=== PATIENT | female | born 1940 | race Caucasian/White ===

== ENCOUNTER 2017-09-24 16:08 | Inpatient (IN) | payer MEDICARE, OTHER ==
[~2017-09-24] VITALS: Ht 157.5 cm; Wt 48.0 kg
[~2017-09-24 16:08] MED LIST: AMLO5TAB4 PO; CHOL10002 PO; KEP500T PO; PRAV40TA3 PO
[2017-09-24] MEDS ORDERED: normal saline 1000ML IV soln IVB ONE ×2 (17:05→17:40)
[2017-09-24 18:16] LABS: COLOR,URINE Red (Yellow); UA COLLECTION TYPE FOLEY CATH
[2017-09-24 18:17] LABS: CLARITY,URINE TURBID (Clear)
[2017-09-24 18:23] LABS: BACTERIA,URINE 1+ /HPF (Neg); MUCUS STRANDS NONE SEEN /LPF (Neg); RBC,URINE TNTC /HPF (0-2); SQUAMOUS EPITHELIAL CELL,UR NONE SEEN /LPF (FEW); WBC,URINE 0-4 /HPF (0-4)
[2017-09-24 19:21] LABS: BASOPHILS # (AUTO) 0.1 X10'3 (0-0.2); BASOPHILS % (AUTO) 0.3 % (0-1); EOSINOPHILS # (AUTO) 0.5 X10'3 (0-0.9); HEMATOCRIT 39.1 % (35.0-45.0); HEMOGLOBIN 13.2 g/dl (12.0-16.0); LYMPHOCYTES % (AUTO) 8.7 % (21-51); MEAN CORPUSCULAR HEMOGLOBIN 30.2 PG (27.0-31.0); MEAN CORPUSCULAR HGB CONC 33.8 % (33.0-36.5); MEAN CORPUSCULAR VOLUME 89.3 FL (78-98); MEAN PLATELET VOLUME 7.4 FL (7.4-10.4); MONOCYTES # (AUTO) 0.8 X10'3 (0-0.9); MONOCYTES % (AUTO) 3.4 % (2-12); NEUTROPHILS # (AUTO) 19.9 X10'3 (1.8-7.7); NEUTROPHILS % (AUTO) 85.6 % (42-75); PLATELET COUNT 301 X10'3 (140-440); RED BLOOD COUNT 4.38 X10'6 (4.20-5.60); RED CELL DISTRIBUTION WIDTH 14.5 % (11.5-14.5); WHITE BLOOD COUNT 23.2 X10'3 (4.5-11.0)
[2017-09-24 19:31] LABS: ALANINE AMINOTRANSFERASE 19 U/L (12-78); ALBUMIN 3.3 G/DL (3.4-5.0); ALBUMIN/GLOBULIN RATIO 0.8 (1.1-1.5); ALKALINE PHOSPHATASE 133 IU/L (46-116); ANION GAP 13 (8-16); BILIRUBIN,TOTAL 0.5 MG/DL (0.1-1.0); BLOOD UREA NITROGEN 24 MG/DL (7-18); BUN/CREATININE RATIO 21.6 (6.6-38.0); CHLORIDE 105 MMOL/L (99-107); CREATININE 1.11 MG/DL (0.40-0.90); GLUCOSE 144 MG/DL (70-104); MAGNESIUM 1.9 MG/DL (1.5-2.4); SODIUM 141 MMOL/L (135-145); TOTAL CARBON DIOXIDE 23.5 MMOL/L (24-32); TOTAL PROTEIN 7.3 G/DL (6.4-8.2); eGFR 48 ML/MIN
[2017-09-24 19:34] LABS: ASPARTATE AMINO TRANSFERASE 20 U/L (10-37); CALCIUM 8.7 MG/DL (8.5-10.1); POTASSIUM 4.2 MMOL/L (3.5-5.1)
[2017-09-24] MEDS ORDERED: iohexol 300mg/ml 100ml inj. ONE (19:50)
[2017-09-24 20:42] LABS: TOTAL CELLS COUNTED 100
[2017-09-24 20:43] LABS: PLATELET ESTIMATE NORMAL
[2017-09-24] MEDS ORDERED: CLOP75TA15 PO (21:16)
[2017-09-24] MEDS ORDERED: CefTRIAXone/D5W-Rocephin 1gm 50 ML IV ONE (21:45)
[2017-09-24] MEDS: normal saline 1000ml 1,000 ML IV SCH (22:08)
[2017-09-24] MEDS ORDERED: potassium Cl 20 mEq SR tablet PO PRN ×2 (22:10)
[2017-09-24] MEDS ORDERED: magnesium hydroxide 30ml (MOM) UD suspension PO PRN (22:10)
[2017-09-24] MEDS ORDERED: magnesium 2GM in 50ml NS 50 ML IV PRN (22:10)
[2017-09-24] MEDS ORDERED: magnesium Cl slow-release 64mg tablet PO PRN (22:10)
[2017-09-24] MEDS ORDERED: potassium Cl 40MEQ/NS 500ml 500 ML IV PRN ×2 (22:10)
[2017-09-24] MEDS ORDERED: acetaminophen 325mg tablet PO PRN (22:10)
[2017-09-24] MEDS ORDERED: mag hydrox/Alum hydrox/simeth 30ml oral suspension PO PRN (22:10)
[2017-09-24] MEDS ORDERED: HYDROmorphone inj. 0.5 MG/0.5 ML DISP.SYRIN IV PRN ×2 (22:10)
[2017-09-24] MEDS ORDERED: ondansetron/PF 4mg/2ml inj IV PRN (22:10)
[2017-09-24] MEDS ORDERED: magnesium 4gm in 100ml NS 100 ML IV PRN (22:10)
[2017-09-24] MEDS ORDERED: CefTRIAXone 2gm/D5W 50ml 50 ML IV ONE (22:10)
[2017-09-24] MEDS ORDERED: ALBU8.5H8 IH (23:10)
[2017-09-25] VITALS (7 sets, daily range): BP systolic 108–137; BP diastolic 53–65
[2017-09-25] MEDS ORDERED: ZOLP5TAB8 PO (00:11)
[2017-09-25] MEDS: piperacillin/tazo 4.5gm/100ml 100 ML IV SCH ×2 (00:27→07:58)
[2017-09-25] MEDS ORDERED: LIDOcaine 1% 30ml preserv. free vial IJ STA (04:03)
[2017-09-25 06:42] LABS: BASOPHILS # (AUTO) 0.1 X10'3 (0-0.2); BASOPHILS % (AUTO) 1.1 % (0-1); EOSINOPHILS # (AUTO) 0.1 X10'3 (0-0.9); EOSINOPHILS % (AUTO) 0.8 % (0-6); HEMATOCRIT 25.5 % (35.0-45.0); HEMOGLOBIN 8.8 g/dl (12.0-16.0); LYMPHOCYTES # (AUTO) 1.4 X10'3 (1.1-4.8); LYMPHOCYTES % (AUTO) 11.1 % (21-51); MEAN CORPUSCULAR HEMOGLOBIN 30.8 PG (27.0-31.0); MEAN CORPUSCULAR HGB CONC 34.6 % (33.0-36.5); MEAN CORPUSCULAR VOLUME 89.2 FL (78-98); MEAN PLATELET VOLUME 7.2 FL (7.4-10.4); MONOCYTES # (AUTO) 0.7 X10'3 (0-0.9); MONOCYTES % (AUTO) 5.3 % (2-12); NEUTROPHILS % (AUTO) 81.7 % (42-75); PLATELET COUNT 306 X10'3 (140-440); RED BLOOD COUNT 2.86 X10'6 (4.20-5.60); RED CELL DISTRIBUTION WIDTH 14.7 % (11.5-14.5); WHITE BLOOD COUNT 12.2 X10'3 (4.5-11.0)
[2017-09-25 06:56] LABS: PARTIAL THROMBOPLASTIN TIME 22 SECONDS (22-32); PROTHROMBIN TIME 10.3 SECONDS (9.0-12.0)
[2017-09-25 07:04] LABS: ALANINE AMINOTRANSFERASE 15 U/L (12-78); ALBUMIN 2.9 G/DL (3.4-5.0); ALBUMIN/GLOBULIN RATIO 0.9 (1.1-1.5); ALKALINE PHOSPHATASE 102 IU/L (46-116); ANION GAP 10 (8-16); ASPARTATE AMINO TRANSFERASE 16 U/L (10-37); BILIRUBIN,TOTAL 0.5 MG/DL (0.1-1.0); BLOOD UREA NITROGEN 23 MG/DL (7-18); BUN/CREATININE RATIO 21.7 (6.6-38.0); CHLORIDE 107 MMOL/L (99-107); CREATININE 1.06 MG/DL (0.40-0.90); GLUCOSE 124 MG/DL (70-104); MAGNESIUM 1.7 MG/DL (1.5-2.4); SODIUM 141 MMOL/L (135-145); TOTAL CARBON DIOXIDE 23.9 MMOL/L (24-32); TOTAL PROTEIN 6.2 G/DL (6.4-8.2); eGFR 50 ML/MIN
[2017-09-25 07:05] LABS: OCCULT BLOOD STOOL NEGATIVE (Neg)
[2017-09-25] MEDS: amLODIPine 5mg tablet PO SCH ×2 (07:58→21:01)
[2017-09-25] MEDS: levetiracetam 250mg tablet PO SCH ×2 (07:58→21:00)
[2017-09-25] MEDS: vitamin D (cholecalciferol) 1,000 unit tablet PO SCH (07:58)
[2017-09-25] MEDS: lactobacillus rhamnosus 10,000 MMU CELLS/CAPSULE PO SCH ×2 (07:58→21:01)
[2017-09-25] MEDS: normal saline 1000ml 1,000 ML IV SCH (07:59)
[2017-09-25] MEDS: K and/or MAG REPLACEMENT MC SCH (08:00)
[2017-09-25 10:19] LABS: BASOPHILS # (AUTO) 0.1 X10'3 (0-0.2); EOSINOPHILS # (AUTO) 0.2 X10'3 (0-0.9); EOSINOPHILS % (AUTO) 1.6 % (0-6); HEMATOCRIT 23.7 % (35.0-45.0); HEMOGLOBIN 8.1 g/dl (12.0-16.0); LYMPHOCYTES # (AUTO) 2.1 X10'3 (1.1-4.8); LYMPHOCYTES % (AUTO) 16.7 % (21-51); MEAN CORPUSCULAR HEMOGLOBIN 30.4 PG (27.0-31.0); MEAN CORPUSCULAR VOLUME 89.4 FL (78-98); MEAN PLATELET VOLUME 6.9 FL (7.4-10.4); MONOCYTES # (AUTO) 0.7 X10'3 (0-0.9); MONOCYTES % (AUTO) 5.9 % (2-12); NEUTROPHILS # (AUTO) 9.5 X10'3 (1.8-7.7); NEUTROPHILS % (AUTO) 74.8 % (42-75); PLATELET COUNT 283 X10'3 (140-440); RED BLOOD COUNT 2.65 X10'6 (4.20-5.60); RED CELL DISTRIBUTION WIDTH 14.9 % (11.5-14.5); WHITE BLOOD COUNT 12.6 X10'3 (4.5-11.0)
[2017-09-25] MEDS ORDERED: diphenhydrAMINE 25mg capsule PO ONE (12:35)
[2017-09-25] MEDS ORDERED: acetaminophen 325mg tablet PO ONE (12:35)
[2017-09-25] MEDS: CefTRIAXone/D5W-Rocephin 1gm 50 ML IV SCH (13:35)
[2017-09-25] MEDS ORDERED: furosemide 40mg/4ml inj IV ONE (14:35)
[2017-09-25 17:33] LABS: BASOPHILS # (AUTO) 0.1 X10'3 (0-0.2); BASOPHILS % (AUTO) 1.1 % (0-1); EOSINOPHILS # (AUTO) 0.2 X10'3 (0-0.9); EOSINOPHILS % (AUTO) 1.8 % (0-6); HEMATOCRIT 27.6 % (35.0-45.0); HEMOGLOBIN 9.5 g/dl (12.0-16.0); LYMPHOCYTES # (AUTO) 2.1 X10'3 (1.1-4.8); LYMPHOCYTES % (AUTO) 20.7 % (21-51); MEAN CORPUSCULAR HEMOGLOBIN 30.9 PG (27.0-31.0); MEAN CORPUSCULAR HGB CONC 34.5 % (33.0-36.5); MEAN CORPUSCULAR VOLUME 89.5 FL (78-98); MEAN PLATELET VOLUME 7.1 FL (7.4-10.4); MONOCYTES # (AUTO) 0.6 X10'3 (0-0.9); MONOCYTES % (AUTO) 5.9 % (2-12); NEUTROPHILS # (AUTO) 7.2 X10'3 (1.8-7.7); NEUTROPHILS % (AUTO) 70.5 % (42-75); PLATELET COUNT 239 X10'3 (140-440); RED BLOOD COUNT 3.08 X10'6 (4.20-5.60); RED CELL DISTRIBUTION WIDTH 14.6 % (11.5-14.5); WHITE BLOOD COUNT 10.2 X10'3 (4.5-11.0)
[2017-09-25] MEDS ORDERED: ringers solution, lacted 1,000 ML IV ONE (19:09)
[2017-09-25] MEDS: pravastatin 40mg tablet PO SCH (21:00)
[2017-09-25] MEDS: HYDROcodone/acetaminophen 5mg/325mg tablet PO PRN (21:06)
[2017-09-26] VITALS (24 sets, daily range): BP systolic 89–140; BP diastolic 41–91
[2017-09-26 01:49] LABS: BASOPHILS # (AUTO) 0.1 X10'3 (0-0.2); BASOPHILS % (AUTO) 0.8 % (0-1); EOSINOPHILS # (AUTO) 0.3 X10'3 (0-0.9); EOSINOPHILS % (AUTO) 3.5 % (0-6); HEMATOCRIT 25.1 % (35.0-45.0); HEMOGLOBIN 8.5 g/dl (12.0-16.0); LYMPHOCYTES # (AUTO) 1.8 X10'3 (1.1-4.8); MEAN CORPUSCULAR HEMOGLOBIN 30.5 PG (27.0-31.0); MEAN CORPUSCULAR VOLUME 89.7 FL (78-98); MEAN PLATELET VOLUME 7.4 FL (7.4-10.4); MONOCYTES # (AUTO) 0.6 X10'3 (0-0.9); MONOCYTES % (AUTO) 7.4 % (2-12); NEUTROPHILS # (AUTO) 5.8 X10'3 (1.8-7.7); NEUTROPHILS % (AUTO) 67.3 % (42-75); PLATELET COUNT 218 X10'3 (140-440); RED CELL DISTRIBUTION WIDTH 14.2 % (11.5-14.5); WHITE BLOOD COUNT 8.6 X10'3 (4.5-11.0)
[2017-09-26 06:55] LABS: BASOPHILS # (AUTO) 0.1 X10'3 (0-0.2); BASOPHILS % (AUTO) 1.3 % (0-1); EOSINOPHILS # (AUTO) 0.3 X10'3 (0-0.9); EOSINOPHILS % (AUTO) 3.7 % (0-6); HEMOGLOBIN 8.9 g/dl (12.0-16.0); LYMPHOCYTES # (AUTO) 1.6 X10'3 (1.1-4.8); LYMPHOCYTES % (AUTO) 17.9 % (21-51); MEAN CORPUSCULAR HEMOGLOBIN 30.6 PG (27.0-31.0); MEAN CORPUSCULAR HGB CONC 34.3 % (33.0-36.5); MEAN PLATELET VOLUME 7.3 FL (7.4-10.4); MONOCYTES # (AUTO) 0.6 X10'3 (0-0.9); MONOCYTES % (AUTO) 6.6 % (2-12); NEUTROPHILS # (AUTO) 6.1 X10'3 (1.8-7.7); NEUTROPHILS % (AUTO) 70.5 % (42-75); PLATELET COUNT 218 X10'3 (140-440); RED BLOOD COUNT 2.92 X10'6 (4.20-5.60); RED CELL DISTRIBUTION WIDTH 14.5 % (11.5-14.5); WHITE BLOOD COUNT 8.7 X10'3 (4.5-11.0)
[2017-09-26 07:06] LABS: PARTIAL THROMBOPLASTIN TIME 24 SECONDS (22-32); PROTHROMBIN TIME 10.5 SECONDS (9.0-12.0)
[2017-09-26 07:23] LABS: ALANINE AMINOTRANSFERASE 14 U/L (12-78); ALBUMIN 2.6 G/DL (3.4-5.0); ALBUMIN/GLOBULIN RATIO 0.9 (1.1-1.5); ALKALINE PHOSPHATASE 88 IU/L (46-116); ANION GAP 8 (8-16); ASPARTATE AMINO TRANSFERASE 10 U/L (10-37); BILIRUBIN,TOTAL 0.4 MG/DL (0.1-1.0); BLOOD UREA NITROGEN 14 MG/DL (7-18); BUN/CREATININE RATIO 15.2 (6.6-38.0); CALCIUM 7.7 MG/DL (8.5-10.1); CHLORIDE 106 MMOL/L (99-107); CREATININE 0.92 MG/DL (0.40-0.90); GLUCOSE 85 MG/DL (70-104); MAGNESIUM 1.5 MG/DL (1.5-2.4); POTASSIUM 3.2 MMOL/L (3.5-5.1); SODIUM 141 MMOL/L (135-145); TOTAL CARBON DIOXIDE 26.8 MMOL/L (24-32); TOTAL PROTEIN 5.6 G/DL (6.4-8.2); eGFR 59 ML/MIN
[2017-09-26] MEDS: vitamin D (cholecalciferol) 1,000 unit tablet PO SCH (07:49)
[2017-09-26] MEDS: lactobacillus rhamnosus 10,000 MMU CELLS/CAPSULE PO SCH ×2 (07:49→20:33)
[2017-09-26] MEDS: K and/or MAG REPLACEMENT MC SCH (08:00)
[2017-09-26] MEDS: CefTRIAXone/D5W-Rocephin 1gm 50 ML IV SCH (08:20)
[2017-09-26] MEDS: amLODIPine 5mg tablet PO SCH (08:37)
[2017-09-26] MEDS: levetiracetam 250mg tablet PO SCH ×2 (08:37→20:32)
[2017-09-26] MEDS ORDERED: dexamethasone sod phosphate 4mg/ml inj. ONE (08:45)
[2017-09-26] MEDS ORDERED: sevoflurane 250ml liquid IH ONE (08:45)
[2017-09-26] MEDS ORDERED: fentaNYL/PF 50MCG/1 ML 2ML syringe ONE (08:49)
[2017-09-26] MEDS ORDERED: midazolam 2 mg/2 ml injection ONE (08:50)
[2017-09-26] MEDS ORDERED: etomidate 2mg/ml inj. ONE (08:50)
[2017-09-26] MEDS ORDERED: ondansetron/PF 4mg/2ml inj ONE (08:50)
[2017-09-26] MEDS ORDERED: iohexol 300 MG/1 ML 50ml polymer ONE (08:50)
[2017-09-26] MEDS ORDERED: ringers solution, lacted 1,000 ML IV SCH (09:26)
[2017-09-26] MEDS ORDERED: morphine 4 MG/ML inj SYRINge IV PRN ×2 (09:30)
[2017-09-26] MEDS ORDERED: fentaNYL/PF 50MCG/1 ML 2ML syringe IV PRN ×2 (09:30)
[2017-09-26] MEDS ORDERED: ondansetron/PF 4mg/2ml inj IV PRN (09:30)
[2017-09-26] MEDS ORDERED: hydrALAZINE 20mg/ml inj. IV PRN (09:30)
[2017-09-26] MEDS ORDERED: enalaprilat dihydrate 2.5mg/2ml vial IV PRN (09:30)
[2017-09-26] MEDS ORDERED: normal saline 1000ml 1,000 ML IV SCH (16:15)
[2017-09-26] MEDS: levoFLOXACIN-Levaquin 500mg/D5 100 ML IV SCH (17:26)
[2017-09-26] MEDS: HYDROcodone/acetaminophen 5mg/325mg tablet PO PRN ×2 (19:22→23:29)
[2017-09-26] MEDS: Potassium Cl inj 20 MEQ in normal saline 1000ml 990 ML IV SCH (20:32)
[2017-09-26] MEDS: pravastatin 40mg tablet PO SCH (20:32)
[2017-09-27] VITALS: BP 99/61
[2017-09-27 04:00] VITALS: BP 126/64
[2017-09-27] MEDS: HYDROcodone/acetaminophen 5mg/325mg tablet PO PRN ×3 (05:37→20:59)
[2017-09-27 06:17] LABS: BASOPHILS % (AUTO) 0.2 % (0-1); EOSINOPHILS # (AUTO) 0.1 X10'3 (0-0.9); EOSINOPHILS % (AUTO) 1.4 % (0-6); HEMATOCRIT 23.8 % (35.0-45.0); LYMPHOCYTES % (AUTO) 11.2 % (21-51); MEAN CORPUSCULAR HEMOGLOBIN 30.7 PG (27.0-31.0); MEAN CORPUSCULAR HGB CONC 33.7 % (33.0-36.5); MEAN CORPUSCULAR VOLUME 91.1 FL (78-98); MEAN PLATELET VOLUME 7.5 FL (7.4-10.4); MONOCYTES # (AUTO) 0.4 X10'3 (0-0.9); MONOCYTES % (AUTO) 3.8 % (2-12); NEUTROPHILS # (AUTO) 7.8 X10'3 (1.8-7.7); NEUTROPHILS % (AUTO) 83.4 % (42-75); PLATELET COUNT 200 X10'3 (140-440); RED BLOOD COUNT 2.61 X10'6 (4.20-5.60); RED CELL DISTRIBUTION WIDTH 14.3 % (11.5-14.5); WHITE BLOOD COUNT 9.3 X10'3 (4.5-11.0)
[2017-09-27 06:35] LABS: ALANINE AMINOTRANSFERASE 15 U/L (12-78); ALBUMIN 2.8 G/DL (3.4-5.0); ALBUMIN/GLOBULIN RATIO 0.9 (1.1-1.5); ALKALINE PHOSPHATASE 76 IU/L (46-116); ANION GAP 7 (8-16); ASPARTATE AMINO TRANSFERASE 14 U/L (10-37); BILIRUBIN,TOTAL 0.3 MG/DL (0.1-1.0); BLOOD UREA NITROGEN 13 MG/DL (7-18); BUN/CREATININE RATIO 15.7 (6.6-38.0); CALCIUM 8.1 MG/DL (8.5-10.1); CHLORIDE 106 MMOL/L (99-107); CREATININE 0.83 MG/DL (0.40-0.90); GLUCOSE 99 MG/DL (70-104); MAGNESIUM 1.6 MG/DL (1.5-2.4); POTASSIUM 4.6 MMOL/L (3.5-5.1); SODIUM 139 MMOL/L (135-145); TOTAL CARBON DIOXIDE 26.4 MMOL/L (24-32); TOTAL PROTEIN 5.8 G/DL (6.4-8.2); eGFR 67 ML/MIN
[2017-09-27 07:38] VITALS: BP 104/53
[2017-09-27] MEDS: K and/or MAG REPLACEMENT MC SCH (08:00)
[2017-09-27] MEDS: levetiracetam 250mg tablet PO SCH ×2 (08:08→20:58)
[2017-09-27] MEDS: lactobacillus rhamnosus 10,000 MMU CELLS/CAPSULE PO SCH ×2 (08:08→20:57)
[2017-09-27] MEDS: vitamin D (cholecalciferol) 1,000 unit tablet PO SCH (08:08)
[2017-09-27] MEDS: levoFLOXACIN-Levaquin 500mg/D5 100 ML IV SCH (08:08)
[2017-09-27] MEDS: Potassium Cl inj 20 MEQ in normal saline 1000ml 990 ML IV SCH (11:07)
[2017-09-27 11:30] VITALS: BP 125/66
[2017-09-27] MEDS ORDERED: tamsulosin 0.4mg capsule PO ONE (12:10)
[2017-09-27 20:00] VITALS: BP 125/37
[2017-09-27] MEDS: pravastatin 40mg tablet PO SCH (20:59)
[2017-09-27] MEDS ORDERED: zolpidem 5mg tablet PO PRN (22:55)
[2017-09-28] VITALS: BP 146/56
[2017-09-28 04:41] LABS: BASOPHILS # (AUTO) 0.1 X10'3 (0-0.2); BASOPHILS % (AUTO) 1.2 % (0-1); EOSINOPHILS # (AUTO) 0.2 X10'3 (0-0.9); EOSINOPHILS % (AUTO) 1.5 % (0-6); HEMATOCRIT 22.7 % (35.0-45.0); HEMOGLOBIN 7.9 g/dl (12.0-16.0); LYMPHOCYTES # (AUTO) 2.6 X10'3 (1.1-4.8); LYMPHOCYTES % (AUTO) 25.6 % (21-51); MEAN CORPUSCULAR HGB CONC 34.9 % (33.0-36.5); MEAN CORPUSCULAR VOLUME 88.9 FL (78-98); MEAN PLATELET VOLUME 7.5 FL (7.4-10.4); MONOCYTES # (AUTO) 0.6 X10'3 (0-0.9); MONOCYTES % (AUTO) 6.3 % (2-12); NEUTROPHILS # (AUTO) 6.6 X10'3 (1.8-7.7); NEUTROPHILS % (AUTO) 65.4 % (42-75); PLATELET COUNT 229 X10'3 (140-440); RED BLOOD COUNT 2.55 X10'6 (4.20-5.60); RED CELL DISTRIBUTION WIDTH 14.9 % (11.5-14.5)
[2017-09-28 05:13] LABS: ALANINE AMINOTRANSFERASE 15 U/L (12-78); ALBUMIN 2.7 G/DL (3.4-5.0); ALBUMIN/GLOBULIN RATIO 0.9 (1.1-1.5); ALKALINE PHOSPHATASE 72 IU/L (46-116); ANION GAP 7 (8-16); ASPARTATE AMINO TRANSFERASE 15 U/L (10-37); BILIRUBIN,TOTAL 0.3 MG/DL (0.1-1.0); BLOOD UREA NITROGEN 12 MG/DL (7-18); BUN/CREATININE RATIO 11.7 (6.6-38.0); CALCIUM 7.9 MG/DL (8.5-10.1); CHLORIDE 104 MMOL/L (99-107); CREATININE 1.03 MG/DL (0.40-0.90); GLUCOSE 82 MG/DL (70-104); MAGNESIUM 1.5 MG/DL (1.5-2.4); POTASSIUM 3.9 MMOL/L (3.5-5.1); SODIUM 138 MMOL/L (135-145); TOTAL CARBON DIOXIDE 27.3 MMOL/L (24-32); TOTAL PROTEIN 5.6 G/DL (6.4-8.2); eGFR 52 ML/MIN
[2017-09-28] MEDS: levoFLOXACIN-Levaquin 500mg/D5 100 ML IV SCH (08:00)
[2017-09-28] MEDS: levetiracetam 250mg tablet PO SCH (08:00)
[2017-09-28] MEDS: vitamin D (cholecalciferol) 1,000 unit tablet PO SCH (08:00)
[2017-09-28] MEDS: lactobacillus rhamnosus 10,000 MMU CELLS/CAPSULE PO SCH (08:00)
[2017-09-28] MEDS: K and/or MAG REPLACEMENT MC SCH (08:00)
[2017-09-28] MEDS ORDERED: tamsulosin 0.4mg capsule PO SCH (08:00)
[2017-09-28 11:00] VITALS: BP 123/60
[2017-09-28] MEDS: HYDROcodone/acetaminophen 5mg/325mg tablet PO PRN (12:12)
[2017-09-29] MEDS ORDERED: levoFLOXACIN 500mg tablet PO SCH (11:00)
== END 2017-09-28 16:46 | DRG 662 ==
LOC: ER 16:09 → UNDOADMIN 22:08 → ED HOLD 22:08 → SUR 3N 09-25 11:52
PROVIDERS: ADMIT Internal Medicine; ATTEND Internal Medicine
PROC: 30233N1 Transfusion of Nonautologous Red Blood Cells into Peripheral Vein, Percutaneous Approach (ICD-10-PCS; principal; 2017-09-25)
PROC: 0TCB8ZZ Extirpation of Matter from Bladder, Via Natural or Artificial Opening Endoscopic (ICD-10-PCS; 2017-09-26)
PROC: 0W3R8ZZ Control Bleeding in Genitourinary Tract, Via Natural or Artificial Opening Endoscopic (ICD-10-PCS; 2017-09-26)
DX: S37.29XA Other injury of bladder, initial encounter (principal); A41.9 Sepsis, unspecified organism; N17.9 Acute kidney failure, unspecified; I69.354 Hemiplegia and hemiparesis following cerebral infarction affecting left non-dominant side; D62 Acute posthemorrhagic anemia; N30.91 Cystitis, unspecified with hematuria; E86.0 Dehydration; G40.909 Epilepsy, unspecified, not intractable, without status epilepticus; N39.498 Other specified urinary incontinence; R33.9 Retention of urine, unspecified; E78.5 Hyperlipidemia, unspecified; E87.6 Hypokalemia; F01.50 Vascular dementia, unspecified severity, without behavioral disturbance, psychotic disturbance, mood disturbance, and anxiety; I10 Essential (primary) hypertension; E55.9 Vitamin D deficiency, unspecified; Z99.3 Dependence on wheelchair; Z90.49 Acquired absence of other specified parts of digestive tract; Z79.02 Long term (current) use of antithrombotics/antiplatelets; Z79.82 Long term (current) use of aspirin; Z79.899 Other long term (current) drug therapy; Z87.891 Personal history of nicotine dependence; Z92.21 Personal history of antineoplastic chemotherapy; Z85.038 Personal history of other malignant neoplasm of large intestine; X58.XXXA Exposure to other specified factors, initial encounter; Y92.89 Other specified places as the place of occurrence of the external cause
CPT/HCPCS: 36415; 71045; 74176; 80053; 81001; 82272; 83605; 83735; 83880; 84145; 84484; 85025; 85610; 85730; 86885; 86900; 86901; 86920; 87040; 87070; 93005; 94760; 96361; 96365; 97110; 97530; 99285; A4402; A6258; A6402; C1751; J0696; J1100; J1940; J1956; J2250; J2405; J2543; J3010; J3480; J3490; J7030; J7120; P9016; Q0163; Q9967

== ENCOUNTER 2018-02-03 16:13 | Inpatient (IN) | payer MEDICARE, OTHER ==
[~2018-02-03] VITALS: Ht 160 cm; Wt 53.0 kg
[~2018-02-03 16:13] MED LIST changes: +ALBU8.5H8 IH; +CLOP75TA15 PO; +ZOLP5TAB8 PO
[2018-02-03 16:49] LABS: BASOPHILS # (AUTO) 0.1 X10'3 (0-0.2); BASOPHILS % (AUTO) 0.9 % (0-1); EOSINOPHILS # (AUTO) 0.4 X10'3 (0-0.9); EOSINOPHILS % (AUTO) 3.3 % (0-6); HEMATOCRIT 37.8 % (35.0-45.0); HEMOGLOBIN 12.6 g/dl (12.0-16.0); LYMPHOCYTES # (AUTO) 2.1 X10'3 (1.1-4.8); LYMPHOCYTES % (AUTO) 18.6 % (21-51); MEAN CORPUSCULAR HEMOGLOBIN 29.4 PG (27.0-31.0); MEAN CORPUSCULAR HGB CONC 33.3 % (33.0-36.5); MEAN CORPUSCULAR VOLUME 88.2 FL (78-98); MEAN PLATELET VOLUME 7.8 FL (7.4-10.4); MONOCYTES # (AUTO) 0.6 X10'3 (0-0.9); MONOCYTES % (AUTO) 5.4 % (2-12); NEUTROPHILS # (AUTO) 8.2 X10'3 (1.8-7.7); NEUTROPHILS % (AUTO) 71.8 % (42-75); PLATELET COUNT 305 X10'3 (140-440); RED BLOOD COUNT 4.28 X10'6 (4.20-5.60); RED CELL DISTRIBUTION WIDTH 18.4 % (11.5-14.5); WHITE BLOOD COUNT 11.4 X10'3 (4.5-11.0)
[2018-02-03 16:58] LABS: INR 0.9 INR; PROTHROMBIN TIME 9.7 SECONDS (9.0-12.0)
[2018-02-03 17:04] LABS: ALANINE AMINOTRANSFERASE 26 U/L (12-78); ALBUMIN 3.7 G/DL (3.4-5.0); ALBUMIN/GLOBULIN RATIO 0.9 (1.1-1.5); ALKALINE PHOSPHATASE 129 IU/L (46-116); ANION GAP 7 (8-16); ASPARTATE AMINO TRANSFERASE 20 U/L (10-37); BILIRUBIN,TOTAL 0.3 MG/DL (0.1-1.0); BLOOD UREA NITROGEN 24 MG/DL (7-18); BUN/CREATININE RATIO 23.8 (6.6-38.0); CALCIUM 8.9 MG/DL (8.5-10.1); CHLORIDE 106 MMOL/L (99-107); CREATININE 1.01 MG/DL (0.40-0.90); GLUCOSE 97 MG/DL (70-104); POTASSIUM 3.9 MMOL/L (3.5-5.1); SODIUM 142 MMOL/L (135-145); TOTAL CARBON DIOXIDE 29.1 MMOL/L (24-32); TOTAL PROTEIN 7.6 G/DL (6.4-8.2); eGFR 53 ML/MIN
[2018-02-03 18:06] LABS: CLARITY,URINE CLOUDY (Clear); COLOR,URINE YELLOW (Yellow); GLUCOSE, URINE NEGATIVE (Neg); KETONES,URINE NEGATIVE (Neg); LEUKOCYTE ESTERASE ,URINE LARGE (Neg); NITRITES, URINE POSITIVE (Neg); OCCULT BLOOD,URINE SMALL (Neg); PROTEIN,URINE NEGATIVE (Neg); UROBILINOGEN,URINE 0.2 E.U/dL (0.2-1.0)
[2018-02-03 18:10] LABS: UA COLLECTION TYPE STRAIGHT CATH
[2018-02-03 18:12] LABS: BACTERIA,URINE 3+ /HPF (Neg); SQUAMOUS EPITHELIAL CELL,UR FEW /LPF (FEW); WBC,URINE 50-100 /HPF (0-4)
[2018-02-03] MEDS ORDERED: tranexamic acid inj. 1,000 MG in normal saline 100ml IV soln 90 ML IV ONE (18:20)
[2018-02-03] MEDS ORDERED: pantoprazole 40 MG vial IV ONE (18:30)
[2018-02-03] MEDS ORDERED: CefTRIAXone 2gm/D5W 50ml 50 ML IV ONE (18:35)
[2018-02-03] MEDS ORDERED: normal saline 1000ML IV soln IV ONE (18:35)
[2018-02-03 18:42] LABS: OCCULT BLOOD STOOL POSITIVE (Neg)
[2018-02-03] MEDS ORDERED: pantoprazole 40MG/NS 100ML BAG 100 ML IV SCH (18:58)
[2018-02-03] MEDS ORDERED: MELO7.5T12 PO (19:51)
[2018-02-03] MEDS ORDERED: MIRT15TA10 PO (19:51)
[2018-02-03] MEDS: normal saline 1000ml 1,000 ML IV SCH (19:54)
[2018-02-03] MEDS ORDERED: ondansetron/PF 4mg/2ml inj IV PRN (19:55)
[2018-02-03] MEDS ORDERED: magnesium hydroxide 30ml (MOM) UD suspension PO PRN (19:55)
[2018-02-03] MEDS ORDERED: mag hydrox/Alum hydrox/simeth 30ml oral suspension PO PRN (19:55)
[2018-02-03] MEDS ORDERED: acetaminophen 325mg tablet PO PRN ×2 (19:55)
[2018-02-03] MEDS ORDERED: HYDROcodone/acetaminophen 5mg/325mg tablet PO PRN (19:55)
[2018-02-03] MEDS ORDERED: non-formulary drug (Albuterol Sulfate (Proair Hfa) 2 PUFFS) IH PRN (20:00)
[2018-02-03] MEDS ORDERED: non-formulary drug (Levetiracetam (Keppra) 2 TAB) PO SCH (20:00)
[2018-02-03] MEDS ORDERED: PEG 3350/Na sulf,bicarb,Cl/KCl oral sol 4 liter bottle PO ONE (20:05)
[2018-02-03] MEDS ORDERED: albuterol 2.5 MG/3 ML nebule NEB PRN (20:10)
[2018-02-03] MEDS ORDERED: non-formulary drug (Mirtazapine 1 TAB) PO SCH (21:00)
[2018-02-03] MEDS ORDERED: temazepam 15mg capsule PO PRN (21:00)
[2018-02-03] MEDS: amLODIPine 5mg tablet PO SCH (22:11)
[2018-02-03] MEDS: pravastatin 40mg tablet PO SCH ×2 (22:12→22:14)
[2018-02-03 23:10] VITALS: BP 129/69
[2018-02-03] MEDS: pantoprazole 40MG/NS 100ML BAG 100 ML IV SCH (23:15)
[2018-02-03] MEDS: mirtazapine 15mg tablet PO SCH (23:51)
[2018-02-04] VITALS (11 sets, daily range): BP systolic 98–146; BP diastolic 54–75
[2018-02-04] MEDS: pantoprazole 40MG/NS 100ML BAG 100 ML IV SCH ×4 (01:16→16:59)
[2018-02-04 07:45] LABS: ALBUMIN 3.4 G/DL (3.4-5.0); ANION GAP 11 (8-16); BLOOD UREA NITROGEN 20 MG/DL (7-18); BUN/CREATININE RATIO 18.5 (6.6-38.0); CALCIUM 7.9 MG/DL (8.5-10.1); CHLORIDE 107 MMOL/L (99-107); CREATININE 1.08 MG/DL (0.40-0.90); GLUCOSE 76 MG/DL (70-104); SODIUM 142 MMOL/L (135-145); TOTAL CARBON DIOXIDE 23.9 MMOL/L (24-32); eGFR 49 ML/MIN
[2018-02-04 07:57] LABS: BASOPHILS % (AUTO) 0.5 % (0-1); EOSINOPHILS # (AUTO) 0.5 X10'3 (0-0.9); EOSINOPHILS % (AUTO) 6.1 % (0-6); HEMATOCRIT 36.7 % (35.0-45.0); HEMOGLOBIN 12.1 g/dl (12.0-16.0); LYMPHOCYTES # (AUTO) 1.2 X10'3 (1.1-4.8); MEAN CORPUSCULAR HEMOGLOBIN 28.9 PG (27.0-31.0); MEAN CORPUSCULAR VOLUME 87.7 FL (78-98); MEAN PLATELET VOLUME 8.1 FL (7.4-10.4); MONOCYTES # (AUTO) 0.5 X10'3 (0-0.9); MONOCYTES % (AUTO) 6.1 % (2-12); NEUTROPHILS # (AUTO) 5.5 X10'3 (1.8-7.7); NEUTROPHILS % (AUTO) 71.3 % (42-75); PLATELET COUNT 248 X10'3 (140-440); RED BLOOD COUNT 4.18 X10'6 (4.20-5.60); RED CELL DISTRIBUTION WIDTH 18.2 % (11.5-14.5); WHITE BLOOD COUNT 7.7 X10'3 (4.5-11.0)
[2018-02-04] MEDS ORDERED: non-formulary drug (Cholecalciferol (Vitamin D3) (Vitamin D3) 1 TAB) PO SCH (08:00)
[2018-02-04] MEDS: vitamin D (cholecalciferol) 1,000 unit tablet PO SCH (08:01)
[2018-02-04] MEDS: CefTRIAXone 2gm/D5W 50ml 50 ML IV SCH (08:01)
[2018-02-04] MEDS: amLODIPine 5mg tablet PO SCH (08:02)
[2018-02-04] MEDS: levetiracetam 250mg tablet PO SCH (08:02)
[2018-02-04 10:07] LABS: ANISOCYTOSIS 2+; PLATELET ESTIMATE NORMAL
[2018-02-04] MEDS: normal saline 1000ml 1,000 ML IV SCH (11:43)
[2018-02-04] MEDS ORDERED: fentaNYL/PF 50MCG/1 ML 2ML syringe ONE (20:53)
[2018-02-04] MEDS ORDERED: LIDOcaine Viscous 15ml cup ONE (20:54)
[2018-02-04] MEDS ORDERED: MIDAZolam 5mg/5ml vial ONE (20:54)
[2018-02-04] MEDS ORDERED: magnesium citrate 296ml oral solution PO STA (21:38)
[2018-02-05] VITALS (14 sets, daily range): BP systolic 109–155; BP diastolic 63–101
[2018-02-05] MEDS: amLODIPine 5mg tablet PO SCH ×3 (00:05→19:42)
[2018-02-05] MEDS: levetiracetam 250mg tablet PO SCH ×3 (00:05→19:42)
[2018-02-05] MEDS: mirtazapine 15mg tablet PO SCH ×2 (00:05→20:58)
[2018-02-05] MEDS: bisacodyl 5mg tablet.DR PO SCH ×3 (00:47→19:42)
[2018-02-05] MEDS: pantoprazole 40MG/NS 100ML BAG 100 ML IV SCH ×6 (01:20→23:33)
[2018-02-05 05:42] LABS: BASOPHILS % (AUTO) 0.7 % (0-1); EOSINOPHILS # (AUTO) 0.3 X10'3 (0-0.9); EOSINOPHILS % (AUTO) 4.9 % (0-6); HEMATOCRIT 31.6 % (35.0-45.0); HEMOGLOBIN 10.7 g/dl (12.0-16.0); LYMPHOCYTES # (AUTO) 0.9 X10'3 (1.1-4.8); LYMPHOCYTES % (AUTO) 14.6 % (21-51); MEAN CORPUSCULAR HEMOGLOBIN 29.3 PG (27.0-31.0); MEAN CORPUSCULAR HGB CONC 33.8 % (33.0-36.5); MEAN CORPUSCULAR VOLUME 86.7 FL (78-98); MEAN PLATELET VOLUME 7.9 FL (7.4-10.4); MONOCYTES # (AUTO) 0.4 X10'3 (0-0.9); MONOCYTES % (AUTO) 6.6 % (2-12); NEUTROPHILS # (AUTO) 4.6 X10'3 (1.8-7.7); NEUTROPHILS % (AUTO) 73.2 % (42-75); PLATELET COUNT 240 X10'3 (140-440); RED BLOOD COUNT 3.65 X10'6 (4.20-5.60); RED CELL DISTRIBUTION WIDTH 18.4 % (11.5-14.5); WHITE BLOOD COUNT 6.3 X10'3 (4.5-11.0)
[2018-02-05] MEDS ORDERED: magnesium citrate 296ml oral solution PO ONE (06:00)
[2018-02-05 06:04] LABS: ANION GAP 12 (8-16); BLOOD UREA NITROGEN 12 MG/DL (7-18); BUN/CREATININE RATIO 14.6 (6.6-38.0); CALCIUM 8.1 MG/DL (8.5-10.1); CHLORIDE 106 MMOL/L (99-107); CREATININE 0.82 MG/DL (0.40-0.90); GLUCOSE 81 MG/DL (70-104); POTASSIUM 3.8 MMOL/L (3.5-5.1); SODIUM 143 MMOL/L (135-145); TOTAL CARBON DIOXIDE 25.4 MMOL/L (24-32); eGFR 68 ML/MIN
[2018-02-05 07:16] LABS: PLATELET ESTIMATE NORMAL
[2018-02-05 07:17] LABS: ANISOCYTOSIS 2+; MICROCYTOSIS 1+; POLYCHROMASIA FEW; TARGET CELLS 1+
[2018-02-05] MEDS: normal saline 1000ml 1,000 ML IV SCH ×2 (09:41→11:54)
[2018-02-05] MEDS: CefTRIAXone 2gm/D5W 50ml 50 ML IV SCH (09:41)
[2018-02-05] MEDS: vitamin D (cholecalciferol) 1,000 unit tablet PO SCH (09:42)
[2018-02-05] MEDS ORDERED: PEG 3350/Na sulf,bicarb,Cl/KCl oral sol 4 liter bottle PO ONE (11:50)
[2018-02-05] MEDS ORDERED: fentaNYL/PF 50MCG/1 ML 2ML syringe ONE (16:52)
[2018-02-05] MEDS ORDERED: MIDAZolam 5mg/5ml vial ONE (16:53)
[2018-02-05] MEDS: HYDROcodone/acetaminophen 10/325mg tab PO PRN (18:43)
[2018-02-05] MEDS: lactobacillus rhamnosus 10,000 MMU CELLS/CAPSULE PO SCH (19:42)
[2018-02-05] MEDS: pravastatin 40mg tablet PO SCH (20:58)
[2018-02-06] VITALS: BP 120/57
[2018-02-06] MEDS: normal saline 1000ml 1,000 ML IV SCH (01:14)
[2018-02-06] MEDS: pantoprazole 40MG/NS 100ML BAG 100 ML IV SCH ×3 (03:57→11:00)
[2018-02-06 04:37] VITALS: BP 139/73
[2018-02-06 05:43] LABS: BASOPHILS % (AUTO) 0.2 % (0-1); EOSINOPHILS # (AUTO) 0.4 X10'3 (0-0.9); EOSINOPHILS % (AUTO) 6.1 % (0-6); HEMATOCRIT 33.3 % (35.0-45.0); LYMPHOCYTES # (AUTO) 1.2 X10'3 (1.1-4.8); LYMPHOCYTES % (AUTO) 16.4 % (21-51); MEAN CORPUSCULAR HEMOGLOBIN 29.2 PG (27.0-31.0); MEAN CORPUSCULAR VOLUME 88.5 FL (78-98); MEAN PLATELET VOLUME 7.9 FL (7.4-10.4); MONOCYTES # (AUTO) 0.6 X10'3 (0-0.9); NEUTROPHILS # (AUTO) 4.9 X10'3 (1.8-7.7); NEUTROPHILS % (AUTO) 69.3 % (42-75); PLATELET COUNT 252 X10'3 (140-440); RED BLOOD COUNT 3.76 X10'6 (4.20-5.60); WHITE BLOOD COUNT 7.1 X10'3 (4.5-11.0)
[2018-02-06 06:02] LABS: ALBUMIN 3.1 G/DL (3.4-5.0); ANION GAP 8 (8-16); BLOOD UREA NITROGEN 13 MG/DL (7-18); BUN/CREATININE RATIO 14.1 (6.6-38.0); CALCIUM 8.5 MG/DL (8.5-10.1); CHLORIDE 107 MMOL/L (99-107); CREATININE 0.92 MG/DL (0.40-0.90); GLUCOSE 77 MG/DL (70-104); SODIUM 141 MMOL/L (135-145); TOTAL CARBON DIOXIDE 25.9 MMOL/L (24-32); eGFR 59 ML/MIN
[2018-02-06 06:57] VITALS: BP 125/67
[2018-02-06] MEDS: CefTRIAXone 2gm/D5W 50ml 50 ML IV SCH (07:51)
[2018-02-06] MEDS: levetiracetam 250mg tablet PO SCH ×2 (07:57→20:35)
[2018-02-06] MEDS: lactobacillus rhamnosus 10,000 MMU CELLS/CAPSULE PO SCH ×2 (07:58→20:35)
[2018-02-06] MEDS: amLODIPine 5mg tablet PO SCH ×2 (07:58→20:35)
[2018-02-06] MEDS: vitamin D (cholecalciferol) 1,000 unit tablet PO SCH (07:59)
[2018-02-06] MEDS: HYDROcodone/acetaminophen 10/325mg tab PO PRN ×2 (09:53→20:30)
[2018-02-06 11:40] VITALS: BP 119/64
[2018-02-06] MEDS ORDERED: PANT-47 PO (13:32)
[2018-02-06 18:00] VITALS: BP 130/47
[2018-02-06] MEDS: pravastatin 40mg tablet PO SCH (20:35)
[2018-02-06] MEDS: mirtazapine 15mg tablet PO SCH (20:35)
[2018-02-06 23:55] VITALS: BP 144/58
[2018-02-07 06:05] LABS: BASOPHILS # (AUTO) 0.1 X10'3 (0-0.2); BASOPHILS % (AUTO) 1.6 % (0-1); EOSINOPHILS # (AUTO) 0.3 X10'3 (0-0.9); EOSINOPHILS % (AUTO) 4.6 % (0-6); HEMOGLOBIN 10.6 g/dl (12.0-16.0); LYMPHOCYTES # (AUTO) 1.8 X10'3 (1.1-4.8); LYMPHOCYTES % (AUTO) 25.3 % (21-51); MEAN CORPUSCULAR HEMOGLOBIN 29.1 PG (27.0-31.0); MEAN CORPUSCULAR HGB CONC 33.3 % (33.0-36.5); MEAN CORPUSCULAR VOLUME 87.3 FL (78-98); MEAN PLATELET VOLUME 8.1 FL (7.4-10.4); MONOCYTES # (AUTO) 0.6 X10'3 (0-0.9); NEUTROPHILS # (AUTO) 4.2 X10'3 (1.8-7.7); NEUTROPHILS % (AUTO) 59.5 % (42-75); PLATELET COUNT 263 X10'3 (140-440); RED BLOOD COUNT 3.66 X10'6 (4.20-5.60); RED CELL DISTRIBUTION WIDTH 17.6 % (11.5-14.5); WHITE BLOOD COUNT 7.1 X10'3 (4.5-11.0)
[2018-02-07 06:11] LABS: ANION GAP 6 (8-16); BLOOD UREA NITROGEN 16 MG/DL (7-18); BUN/CREATININE RATIO 15.1 (6.6-38.0); CALCIUM 8.4 MG/DL (8.5-10.1); CHLORIDE 103 MMOL/L (99-107); CREATININE 1.06 MG/DL (0.40-0.90); GLUCOSE 88 MG/DL (70-104); POTASSIUM 3.8 MMOL/L (3.5-5.1); SODIUM 138 MMOL/L (135-145); eGFR 50 ML/MIN
[2018-02-07] MEDS: lactobacillus rhamnosus 10,000 MMU CELLS/CAPSULE PO SCH (07:29)
[2018-02-07] MEDS: levetiracetam 250mg tablet PO SCH (07:29)
[2018-02-07] MEDS: CefTRIAXone 2gm/D5W 50ml 50 ML IV SCH ×2 (07:29→07:32)
[2018-02-07] MEDS: vitamin D (cholecalciferol) 1,000 unit tablet PO SCH (07:29)
[2018-02-07] MEDS: amLODIPine 5mg tablet PO SCH (07:29)
[2018-02-07 07:48] VITALS: BP 132/59
[2018-02-07] MEDS: HYDROcodone/acetaminophen 10/325mg tab PO PRN (11:15)
[2018-02-07 11:57] VITALS: BP 131/49
== END 2018-02-07 13:37 | disposition home health service (06) | DRG 871 ==
LOC: ER 16:14 → ED HOLD 19:54 → SUR 3N 23:03
PROVIDERS: ADMIT Hospitalist; ATTEND Family Medicine
PROC: 0DJ08ZZ Inspection of Upper Intestinal Tract, Via Natural or Artificial Opening Endoscopic (ICD-10-PCS; principal; 2018-02-04)
PROC: 0DJD8ZZ Inspection of Lower Intestinal Tract, Via Natural or Artificial Opening Endoscopic (ICD-10-PCS; 2018-02-05)
DX: A41.9 Sepsis, unspecified organism (principal); K57.91 Diverticulosis of intestine, part unspecified, without perforation or abscess with bleeding; N39.0 Urinary tract infection, site not specified; N17.9 Acute kidney failure, unspecified; K64.9 Unspecified hemorrhoids; B96.20 Unspecified Escherichia coli [E. coli] as the cause of diseases classified elsewhere; K44.9 Diaphragmatic hernia without obstruction or gangrene; K29.60 Other gastritis without bleeding; E78.5 Hyperlipidemia, unspecified; G40.909 Epilepsy, unspecified, not intractable, without status epilepticus; I10 Essential (primary) hypertension; Z66 Do not resuscitate; Z90.49 Acquired absence of other specified parts of digestive tract; Z79.02 Long term (current) use of antithrombotics/antiplatelets; Z79.899 Other long term (current) drug therapy; Z85.038 Personal history of other malignant neoplasm of large intestine; Z86.73 Personal history of transient ischemic attack (TIA), and cerebral infarction without residual deficits; Z87.891 Personal history of nicotine dependence
CPT/HCPCS: 36415; 45378; 80048; 80053; 81001; 82272; 83605; 85025; 85610; 86885; 86900; 86901; 87040; 87070; 87077; 87088; 87186; 96365; 96375; 97110; 97161; 97530; 99285; A4620; A6250; C9113; G0500; J0696; J2250; J3010; J7030

== ENCOUNTER 2019-06-15 11:40 | Outpatient (CLI) | payer MEDICARE ==
[~2019-06-15 11:40] MED LIST changes: +MIRT-66 PO; +PANT-47 PO; -ZOLP5TAB8 PO
[2019-06-15] MEDS ORDERED: BARIUM SULFATE 340 ML SUSP.RECON***PROCEDURE AREA ONLY**DONT ENTER PO ONE (14:00)
[2019-06-15] MEDS ORDERED: SIMETHICONE/SOD BICARB/CIT AC PACKET PO ONE (14:00)
[2019-06-15] MEDS ORDERED: BARIUM SULFATE 700 MG TABLET PO ONE (14:00)
== END 2019-06-15 23:59 | disposition home or self-care (01) ==
LOC: RAD 11:40
PROVIDERS: ATTEND Family Medicine
DX: R05 Cough (principal); I10 Essential (primary) hypertension; Z87.891 Personal history of nicotine dependence; Z72.89 Other problems related to lifestyle; Z85.038 Personal history of other malignant neoplasm of large intestine
CPT/HCPCS: 74220